=== PATIENT | male | born 1980 | race Caucasian/White ===

== ENCOUNTER 2020-10-05 14:05 | Day surgery (SDC) | payer OTHER ==
[~2020-10-05 14:05] MED LIST: Lactated Ringers 1,000 ML IV ONE
[2020-10-05] MEDS ORDERED: Xylocaine 1% Vial 30 ML PF IJ ONE (14:06)
[2020-10-05] MEDS ORDERED: Sodium Chloride 0.9(Preservative Free) 10 ML IJ ONE (14:06)
[2020-10-05] MEDS ORDERED: Depo-Medrol 40 MG/ML IM ONE (14:06)
[2020-10-05] MEDS ORDERED: DIPRIVAN 200 MG/20 ML IV ONE ×2 (15:16→15:32)
[2020-10-05] MEDS ORDERED: ROBINUL ONE (15:37)
--- NOTE | 2020-10-05 16:39 | XRAY ---
Indication: Right L3-L5 transforaminal DWIGHT. Intraoperative fluoroscopy provided for 41 seconds. 3 digital spot images submitted for interpretation demonstrates posterior needle tips projecting over the expected right L4 and L5 nerve roots. Small amount of contrast injected for both needle tip placement. Correlate with intraoperative findings/report.
--- NOTE | 2020-10-05 16:50 | XRAY ---
41 seconds fluoroscopy time in surgery for right L3-L5 transforaminal DWIGHT.
== END 2020-10-05 16:00 | disposition home or self-care (01) ==
LOC: SDC-PAIN 14:05
PROVIDERS: ATTEND Psychiatry & Neurology Pain Medicine
DX: M54.16 Radiculopathy, lumbar region (principal); G47.30 Sleep apnea, unspecified; K21.9 Gastro-esophageal reflux disease without esophagitis; I10 Essential (primary) hypertension; Z79.899 Other long term (current) drug therapy
CPT/HCPCS: 64483; 64484; 72100; 77003; J1030; J2001; J2704; Q9966

== ENCOUNTER 2020-12-28 11:52 | Day surgery (SDC) | payer OTHER ==
[2020-12-28] MEDS ORDERED: Sodium Chloride 0.9(Preservative Free) 10 ML IJ ONE (11:53)
[2020-12-28] MEDS ORDERED: Depo-Medrol 40 MG/ML IM ONE (11:53)
[2020-12-28] MEDS ORDERED: DIPRIVAN 200 MG/20 ML IV ONE ×2 (13:48→13:58)
[2020-12-28] MEDS ORDERED: Lactated Ringers 1,000 ML IV ONE (16:15)
--- NOTE | 2020-12-29 11:20 | XRAY ---
56 seconds fluoroscopy time in surgery for cancelled procedure due to patient's illness.
== END 2020-12-28 14:21 | disposition home or self-care (01) ==
LOC: SDC-PAIN 11:52
PROVIDERS: ATTEND Psychiatry & Neurology Pain Medicine
DX: M54.16 Radiculopathy, lumbar region (principal); Z79.899 Other long term (current) drug therapy
CPT/HCPCS: 64483; 64484; 77003; J1030; J2704; Q9966

== ENCOUNTER 2023-08-07 10:09 | Day surgery (SDC) | payer OTHER ==
[2023-08-07] MEDS ORDERED: Decadron 4 MG INJ IV ONE (10:10)
[2023-08-07] MEDS ORDERED: Sodium Chloride 0.9(Preservative Free) 10 ML IJ ONE (10:10)
[2023-08-07] MEDS ORDERED: Reglan 10 MG/2 ML ONE (11:25)
[2023-08-07] MEDS ORDERED: Pepcid 20 MG VIAL IV ONE (11:25)
[2023-08-07] MEDS ORDERED: Lactated Ringers 1,000 ML IV ONE (12:03)
[2023-08-07] MEDS ORDERED: DIPRIVAN 200 MG/20 ML IV ONE (12:09)
[2023-08-07] MEDS ORDERED: Versed 2 MG/2 ML Injection ONE (12:10)
--- NOTE | 2023-08-07 12:51 | XRAY ---
Indication: Right L3-L5 transforaminal DWIGHT. Intraoperative fluoroscopy provided for 34 seconds. 4 digital spot image submitted for interpretation demonstrates posterior needle tips projecting over presumed right L3 and L4 nerve roots. Small amount of contrast injected for needle tip placement. Correlate with intraoperative findings/report.
--- NOTE | 2023-08-08 14:12 | XRAY ---
34 seconds of fluoroscopy was used in surgery for a right L3-L5 transforaminal DWIGHT.
== END 2023-08-07 12:38 | disposition home or self-care (01) ==
LOC: SDC-PAIN 10:09
PROVIDERS: ATTEND Psychiatry & Neurology Pain Medicine
DX: M54.16 Radiculopathy, lumbar region (principal)
CPT/HCPCS: 64483; 64484; 72100; 77003; J1100; J2250; J2704; Q9966